=== PATIENT | female | born 1970 | race Caucasian/White ===

== ENCOUNTER 2023-03-17 10:26 | Outpatient (CLI) | payer BC, SELFPAY ==
--- NOTE | 2023-03-17 10:35 | MR_ITS ---
WS: [id number] MRI LUMBAR SPINE NONCONTRAST TECHNIQUE: Sagittal T1, T2 and STIR imaging. Axial T1 and T2 imaging. CLINICAL INFORMATION: CERVICAL SPONDYLOSIS WITH RADICULOPATHY COMPARISON: None. FINDINGS: Mild lumbar curve. No acute compression. Postoperative changes ACDF L4-S1. Interbody fusion graft L4- L5 and L5-S1. L1-L2: Normal. L2-L3: Mild annular bulging. Mild facet arthropathy. Spinal canal and foramen are patent. L3-L4: Mild annular bulging. Slight effacement of the ventral thecal sac. Mild facet arthropathy. Spi nal canal and foramen are patent. L4-L5: Postoperative changes ACDF. Spinal canal and foramen are patent. Mild facet arthropathy. L5-S1: Postoperative changes ACDF. Spinal canal and foramen are patent. Mild facet arthropathy. Visualized pelvic bony structures: Normal. Paravertebral soft tissues: Normal. IMPRESSION: 1. Mild lumbar curve. No acute compression. 2. Prior postoperative changes ACDF L4-S1 with interbody fusion grafts. 3. Disc bulging worse at L3-4 with slight effacement of the ventral thecal sac and mild narrowing of the LEFT greater than RIGHT subarticular recess. 4. Mild facet arthropathy L2-L3 and L3-L4. 5. No other suspicious findings.
--- NOTE | 2023-03-17 10:35 | MR_ITS ---
WS: [id number] MRI CERVICAL SPINE NONCONTRAST TECHNIQUE: Sagittal T1, T2 and STIR imaging. Axial T2, gradient, and fiesta imaging. CLINICAL INFORMATION: DDD,LUMBAR COMPARISON: MRI 2017 FINDINGS: Straightening with slight reversal normal cervical lordosis progressed compared to previous. C2-C3: Slight anterolisthesis C2 on C3. Mild facet arthropathy. Spinal canal and foramen are patent. C3-C4: Mild disc bulging with a tiny central protrusion. Slight progression compared to previous. Mil d facet arthropathy. Mild RIGHT and no significant LEFT foraminal narrowing. C4-C5: Minimal disc bulge with osteophytic ridging. Mild LEFT and no significant RIGHT foraminal narr owing. Mild facet arthropathy. C5-C6: Disc osteophyte complex with endplate ridging. Slight retrolisthesis C5 on C6. Moderate LEFT g reater than RIGHT bony foraminal narrowing. Mild facet arthropathy. C6-C7: Disc osteophyte complex with endplate ridging. Severe LEFT and mild RIGHT bony foraminal narro wing. Mild facet arthropathy with uncovertebral joint hypertrophy. C7-T1: Mild LEFT and no significant RIGHT foraminal narrowing. Spinal canal is patent. Visualized brain stem structures: Normal. Prevertebral soft tissues: Normal. IMPRESSION: 1. Straightening with slight reversal normal cervical lordosis progressed compared to previous. 2. Cord signal is normal. No significant central canal stenosis. 3. Moderate bilateral C5-C6 bony foraminal narrowing similar to previous. 4. Tiny shallow central protrusion C3-C4 slightly progressed compared to previous 5. Severe LEFT C6-7 bony foraminal narrowing progressed compared to previous. Disc desiccation and d isc bulging at this level has progressed.
== END 2023-03-17 10:27 | disposition home or self-care (01) ==
PROVIDERS: PCP Nurse Practitioner Family; Visit Provider Nurse Practitioner Family
DX: M51.36 Other intervertebral disc degeneration, lumbar region (principal); M47.22 Other spondylosis with radiculopathy, cervical region; M48.02 Spinal stenosis, cervical region; M50.323 Other cervical disc degeneration at C6-C7 level; Z98.1 Arthrodesis status; M47.816 Spondylosis without myelopathy or radiculopathy, lumbar region
CPT/HCPCS: 72141; 72148

== ENCOUNTER 2025-02-25 10:44 | Emergency (ER) | payer MEDICARE, MEDICAID, SELFPAY ==
--- OUTSIDE RECORDS SUMMARY | 2025-02-15 04:30 | XMS_ITS ---
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 Name Role Phone Patel Ingrid BENZ Primary Care Provider Unavail able Alvaro Hull Unavailable [phone] Nicole Hollins Unavailable [phone] REASON FOR VISIT S/P 02/03/2025 Fusion Cerv Ant Medications Medication SIG (Take, Route, Frequency, Duration) Notes Start Date End Date Status HYDROcodone-Acetamino phen 10-325 MG Tablet 1 tablet as needed Orally every 6 hrs; Duration: 30 days As needed Do not exceed 4 per day Fill on 01-17-25 12/15/2024 02/16/2025 Active Vital Signs Temperature 97.2 degrees Fahrenheit 02/16/20 25 Blood pressure systolic 132 mm Hg 02/16/20 25 Blood pressure diastolic 83 mm Hg 025 Heart Rate 76 /min 02/15/2025 Respiratory Rate 18 /min 02/15/2025 Height 70.00 in 02/15/2025 Weight 118 lbs 02/15/2025 BMI 16.93 kg/m2 02/15/2025 Oximetry 97 % 02/15/2025 Height-cm 177.8 cm 02/15/2025 Weight-kg 53.52 kg 02/15/2025 Encounters Encounter Location Date Provider Diagnosis [facility] [address] [address] 02/15/2025 Nicole Hollins Other spondylosis with radiculopathy, cervical region M47.22 Assessments Encounter Date Diagnosis (ICD Code) Assessment Notes Treatment Notes Treatment Clinical Notes Section Notes 02/15/2025 Other spondylosis with radiculopathy, cervical region (ICD-10 - M47.22) Plan Of Treatment Pending Test Test Name Order Date Cervical Spine AP/Lat 2-3 Views-[id number] Next Appt Details Provider Name:Nicole Hollis son, 03/15/2025 10:00:00 AM, [address] [place], [address], Provider Name:Alvaro Hull, 04/13/2025 10:40:00 AM, [address] [place], [address], Progress Notes * Shira WELLINGTON DDOB: 0 (54 yo F)Acc No.[id number]:02/15/2025 Patient: Franklin Shira joya Provider: Roxana Hollins APRN :1970 A ge:54 Y S ex:Female Date:02/15/2025 Address:[address] [place], [place] [id number] Pcp:TUYET Wilkinson Check Out:10:15 AM 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 E ar, Nose, Mouth, Throat D enies, ear pain, sore throat, sinus congestion, nasal drainage. C ardiovascular D enies any recent chest pain, palpitations or syncope. R espiratory D enies any shortness of breath, cough, or hemoptysis. G astrointestinal D enies heartburn, constipation, diarrhea, nausea, blood in stools, or abdominal pain. G enitourinary D enies dysuria, urinary frequency, or hematuria. M usculoskeletal D enies any joint pain or swelling, no recent trauma. I ntegumentary Denies any rashes, bruising, or skin changes. N eurologic D enies numbness, tingling, unilateral weakness, or vision changes.. * Medical History: No Medical History Documented Medical History Verified * Surgical History: Spinal Fusion Tonsillectomy Surgical History verified. * Hospitalization/Major Diagno stic Procedure: No Hospitalization Documented. Hospitalization Verified. * Family History: M igrated Family History: : Diabetes,Heart disease. F amily History Verified.. * Social History: Social History Verified. No Social History documented. * Medications: T akingHYDROcodone-Acetaminophen 10-325 MG Tablet 1 tablet as needed Orally every 6 hrs As needed Do not exceed 4 per day, stop date 02/16/2025, Notes to Pharmacist: Fill on [id number] List reviewed and reconciled with the patientTaking HYDROcodone-Acetaminophen 10-325 MG Tablet 1 tablet as needed Orally every 6 hrs As needed Do not exceed 4 per day, stop date 02/16/2025, Notes to Pharmacist: Fill on 53-66-29Rzpcpmuldy List reviewed and reconciled with the patient * Allergies: y esAllergies Verified. Objective: * Vitals: H t: 70.00 in, Wt:118lbs, Wt-k.52 kg, BMI:16.93Index, Temp:97.2F, BP:132/83mm Hg, HR:76/min, RR:18/min, Oxygen sat %:97%, O2 Source: RA, Ht-cm: 177.8 cm. Assessment: * Assessment: 1. O ther spondylosis with radiculopathy, cervical region - M47.22 (Primary) Plan: * Treatment: * Procedure Codes: 3 079F DIAST BP 80-89 MM [id number] SYST BP GE 130 - 139MM HG Billing Information: * Procedure Codes: 3079F DIAST BP 80-89 MM HG. 3075F SYST BP GE 130 - 139MM HG. * Electronic signature of Jose Manzanares APRN on 02/25/2025 at 11:03 AM CDT Sign off status: Pending * Provider: Roxana Hollins APRN Date: Generated for Genet galindo/Rodolfo/Pretty on: 11:03 AM CDT
--- OUTSIDE RECORDS SUMMARY | 2025-02-16 04:40 | XMS_ITS ---
Author Organization [facility] Address [address] [place] [address] Care Team Providers Care Verifier Name Role Phone Patel CIARAN-Ingrid Hall Primary Care Provider Unavail able Della Alvaro Unavailable [phone] Results Component Value Reference Range Flag Notes Urine Confirmation Panel (in strument) - [id number] Reviewed date:02/24/2025 10:20:38 AM Interpretation: Performing Lab: Notes/Report: 6-Acetylmorphine 0 <6 ng/mL N This kathy t was developed and its performance characteristics determined by [facility]. It has not been cleared or approved by the U.S. Food and Drug Administration. 7-Aminoclonazepam 0 <60 ng/mL N This te st was developed and its performance characteristics determined by [facility]. It has not been cleared or approved by the U.S. Food and Drug Administration. Alprazolam 0 <60 ng/mL N This test was developed and its performance characteristics determined by [facility]. It has not been cleared or approved by the U.S. Food and Drug Administration. Amphetamine 0 <75 ng/mL N This test was developed and its performance characteristics determined by [facility]. It has not been cleared or approved by the U.S. Food and Drug Administration. aOH-Alprazolam 0 <60 ng/mL N This test was developed and its performance characteristics determined by [facility]. It has not been cleared or approved by the U.S. Food and Drug Administration. Buprenorphine 0.0 <7.5 ng/mL N This test w as developed and its performance characteristics determined by [facility]. It has not been cleared or approved by the U.S. Food and Drug Administration. Norbuprenorphine 0.0 <37.5 ng/mL N This te st was developed and its performance characteristics determined by [facility]. It has not been cleared or approved by the U.S. Food and Drug Administration. Carisoprodol 0 <75 ng/mL N This test wa s developed and its performance characteristics determined by [facility]. It has not been cleared or approved by the U.S. Food and Drug Administration. Codeine 0 <75 ng/mL N This test was developed and its performance characteristics determined by [facility]. It has not been cleared or approved by the U.S. Food and Drug Administration. EDDP 0 <75 ng/mL N This test was developed and its performance characteristics determined by [facility]. It has not been cleared or approved by the U.S. Food and Drug Administration. Fentanyl 0 <6 ng/mL N This test was developed and its performance characteristics determined by [facility]. It has not been cleared or approved by the U.S. Food and Drug Administration. Hydrocodone 877 <75 ng/mL H This test was developed and its performance characteristics determined by [facility]. It has not been cleared or approved by the U.S. Food and Drug Administration. Hydromorphone 442 <75 ng/mL H This test w as developed and its performance characteristics determined by [facility]. It has not been cleared or approved by the U.S. Food and Drug Administration. Lorazepam 0 <60 ng/mL N This test was developed and its performance characteristics determined by [facility]. It has not been cleared or approved by the U.S. Food and Drug Administration. MDMA 0 <75 ng/mL N This test was developed and its performance characteristics determined by [facility]. It has not been cleared or approved by the U.S. Food and Drug Administration. Meperidine 0.0 <37.5 ng/mL N This test was developed and its performance characteristics determined by [facility]. It has not been cleared or approved by the U.S. Food and Drug Administration. Meprobamate 0 <75 ng/mL N This test was developed and its performance characteristics determined by [facility]. It has not been cleared or approved by the U.S. Food and Drug Administration. Methamphetamine 19 <75 ng/mL N This test was developed and its performance characteristics determined by [facility]. It has not been cleared or approved by the U.S. Food and Drug Administration. Methadone 0 <75 ng/mL N This test was developed and its performance characteristics determined by [facility]. It has not been cleared or approved by the U.S. Food and Drug Administration. Morphine 0 <75 ng/mL N This test was developed and its performance characteristics determined by [facility]. It has not been cleared or approved by the U.S. Food and Drug Administration. Nordiazepam 0 <60 ng/mL N This test was developed and its performance characteristics determined by [facility]. It has not been cleared or approved by the U.S. Food and Drug Administration. Norfentanyl 0 <6 ng/mL N This test was developed and its performance characteristics determined by [facility]. It has not been cleared or approved by the U.S. Food and Drug Administration. Normeperidine 0.0 <37.5 ng/mL N This test was developed and its performance characteristics determined by [facility]. It has not been cleared or approved by the U.S. Food and Drug Administration. O-desmethyltramadol 7 <75 ng/mL N This test was developed and its performance characteristics determined by [facility]. It has not been cleared or approved by the U.S. Food and Drug Administration. Oxazepam 0 <60 ng/mL N This test was developed and its performance characteristics determined by [facility]. It has not been cleared or approved by the U.S. Food and Drug Administration. Oxycodone 0.0 <37.5 ng/mL N This test was developed and its performance characteristics determined by [facility]. It has not been cleared or approved by the U.S. Food and Drug Administration. Oxymorphone 0 <75 ng/mL N This test was developed and its performance characteristics determined by [facility]. It has not been cleared or approved by the U.S. Food and Drug Administration. Phencyclidine 0.0 <7.5 ng/mL N This test w as developed and its performance characteristics determined by [facility]. It has not been cleared or approved by the U.S. Food and Drug Administration. Tapentadol 0.0 <37.5 ng/mL N This test was developed and its performance characteristics determined by [facility]. It has not been cleared or approved by the U.S. Food and Drug Administration. Temazepam 0 <60 ng/mL N This test was developed and its performance characteristics determined by [facility]. It has not been cleared or approved by the U.S. Food and Drug Administration. Tramadol 33 <75 ng/mL N This test was developed and its performance characteristics determined by [facility]. It has not been cleared or approved by the U.S. Food and Drug Administration. Norhydrocodone 4753 <75 ng/mL H This test was developed and its performance characteristics determined by [facility]. It has not been cleared or approved by the U.S. Food and Drug Administration. Noroxycodone 0 <38 ng/mL N This test wa s developed and its performance characteristics determined by [facility]. It has not been cleared or approved by the U.S. Food and Drug Administration. Pregabalin 0 <225 ng/mL N This test was developed and its performance characteristics determined by [facility]. It has not been cleared or approved by the U.S. Food and Drug Administration. Gabapentin 0 <225 ng/mL N This test was developed and its performance characteristics determined by [facility]. It has not been cleared or approved by the U.S. Food and Drug Administration. Benzoylecgonine 0.0 <37.5 ng/mL N This kathy t was developed and its performance characteristics determined by [facility]. It has not been cleared or approved by the U.S. Food and Drug Administration. 4-Hydroxy Xylazine 0 <25 ng/mL N This t est was developed and its performance characteristics determined by [facility]. It has not been cleared or approved by the U.S. Food and Drug Administration. Urine Drug Screen (cup read) - [id number] Reviewed date:02/16/2025 11:54:36 AM Interpretation: Performing Lab: Notes/Report: OPI + REASON FOR VISIT 2 month f/u Medications Medication SIG (Take, Route, Frequency, Duration) Notes Start Date End Date Status HYDROcodone-Acetamino phen 10-325 MG Tablet 1 tablet as needed Orally every 6 hrs; Duration: 30 days As needed Do not exceed 4 per day Fill on 03-18-25 02/16/2025 04/17/2025 Active HYDROcodone-Acetamino phen 10-325 MG Tablet 1 tablet as needed Orally every 6 hrs; Duration: 30 days As needed Do not exceed 4 per day Fill on 02-16-25 02/16/2025 03/18/2025 Active Social History Social History Additional Details Category Social Info Options Details Migrated Social History Migrated Social History Alcoholic beverages? - Yes, Applying for disability? - No, Currently on disability? - Yes, Drug or substance abuse? - No, exposure to toxins/poisonous substances at work - No, I am interested in quitting. - No, If yes, frequency of alcoholic beverages - Less than 1 drink per week., Marital Status - , Nonprescription drug use? - No, Participation in detoxification or rehabilitation - No, Smoked in the past? - No, Smoking - 1 PPD, Working currently? - No Problems Problem Type SNOMED Code ICD Code Onset Dates Problem Status W/U Status Risk Notes Problem Degeneration of intervertebral disc of lumbar region with discogenic back pain (M51.360) Active confirmed Vital Signs Height 70.00 in 02/16/2025 Weight 113 lbs 02/16/2025 BMI 16.21 kg/m2 02/16/2025 Height-cm 177.8 cm 02/16/2025 Weight-kg 51.26 kg 02/16/2025 Encounters Encounter Location Date Provider Diagnosis [facility] [place] [address] [place] [address] 02/16/2025 Alvaro Hull Chronic pain syndrom e G89.4 ; Other cervical disc degeneration, unspecified cervical region M50.30 ; Other spondylosis with radiculopathy, cervical region M47.22 ; Degeneration of intervertebral disc of lumbar region with discogenic back pain M51.360 ; Other spondylosis with radiculopathy, lumbosacral region M47.27 ; Sacroiliitis, not elsewhere classified M46.1 ; Postlaminectomy syndrome, not elsewhere classified M96.1 ; Unspecified abnormalities of gait and mobility R26.9 and assisted (current) use of opiate analgesic Z79.891 Assessments Encounter Date Diagnosis (ICD Code) Assessment Notes Treatment Notes Treatment Clinical Notes Section Notes 02/16/2025 Chronic pain syndrome (ICD-10 - G89.4) I had a nice visit with the patient today regarding her chronic pain issues. She underwent a cervical discectomy fusion with Dr. Lala a couple of weeks ago. She is healing from this. She did receive a short prescription for Percocet and a muscle relaxant post-operatively , but she has since transitioned back to hydrocodone. Otherwise, she seems fairly stable. We will continue her current medication regimen unchanged. We will follow up in a couple of months and proceed accordingly. 02/16/2025 Other cervical disc degeneration, unspecified cervical region (ICD-10 - M50.30) 02/16/2025 Other spondylosis with radiculopathy, cervical region (ICD-10 - M47.22) 02/16/2025 Degeneration of intervertebral disc of lumbar region with discogenic back pain (ICD-10 - M51.360) 02/16/2025 Other spondylosis with radiculopathy, lumbosacral region (ICD-10 - M47.27) 02/16/2025 Sacroiliitis, not elsewhere classified (ICD-10 - M46.1) 02/16/2025 Postlaminectomy syndrome, not elsewhere classified (ICD-10 - M96.1) 02/16/2025 Unspecified abnormalities of gait and mobility (ICD-10 - R26.9) 02/16/2025 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 Alvaro Hull. I, Dr. Alvaro Hull, personally performed the services described in this documentation, as scribed by Moriah Rodriguez, and it is both accurate and complete. Plan Of Treatment Medication Medication Name Sig Start Date Stop Date Notes HYDROcodone-Acetaminophen 10-325 MG Tablet 1 tablet as needed Orally every 6 hrs; Duration: 30 days 02/16/2025 04/17/2025 Fill on 03-18-25 HYDROcodone-Acetaminophen 10-325 MG Tablet 1 tablet as needed Orally every 6 hrs; Duration: 30 days 02/16/2025 03/18/2025 Fill on 02-16-25 Treatment Notes Assessment Notes Chronic pain syndrome I had a nice visit with the patient today regarding her chronic pain issues. She underwent a cervical discectomy fusion with Dr. Lala a couple of weeks ago. She is healing from this. She did receive a short prescription for Percocet and a muscle relaxant post-operatively, but she has since transitioned back to hydrocodone. Otherwise, she seems fairly stable. We will continue her current medication regimen unchanged. We will follow up in a couple of months and proceed accordingly. Other I, Moriah Rodriguez, am scribing for Dr. Alvaro Hull. I, Dr. Alvaro Hull, personally performed the services described in this documentation, as scribed by Moriah Rodriguez, and it is both accurate and complete. Next Appt Details Follow Up: 2 Months, Reason: Provider Name:Nicole Hollis son, 03/15/2025 10:00:00 AM, [address] [place], [address], Provider Name:Alvaro Hull, 04/13/2025 10:40:00 AM, [address] [place], [address], History and Physical Notes * HPI (History of Present Illness) Category Sub-Category Detail Notes Category Not es Pain Details Pain Location Neck, Left shoulder, Right shoulder Quality Sharp, Stabbing, Ach ing, Dull Severity of pain at its worst 10/10 Severity of pain at its best 3/10 Severity of average pain 6/10 Severity of pain right now 5/10 Severity of pain on medication 3/10 When did you last take your pain medicin e 02/16/25 at 0800 Medication Details Do you have a lock b ox or safe place for medication away from minors and/or others? Yes Do you have any leftover pain medication building up at your house? No Do you understand that pain medication c an be addicting and can cause overdose? Yes Do you feel you can REDUCE the amount of medication you take today? No Opioid Assessment Tools Pill Count 16 Last Urine Drug Screen 10/15/2024 Cup Today's Rapid Urine Drug Screen will be sent for confirmation [place] Prescription Monitoring Program [place] PDMP, found to be consistent with treatment history, reviewed todayHydro 10 #120 filled 01/17 Treatment History Test undergone in the past MRI C Spine Past medication you have taken Hydrocodo ne 10 #120 Treatments you have had 09/23/2024 C6-7 CESI1 JAMES C7-T1Has completed PT Examination Category Sub-Category Detail Notes Category Not es General Examination Constitutional: Patient appears to be appropriate looking for stated age, lean. Patient is awake, alert and oriented to person, place and time with recent/ remote memory intact. in no acute distress noted. HEENT: Atraumatic, Normocephalic,Pupils grossly normal on inspection. Respiratory: Visual Inspection: breathing equal bilaterally, trachea midline. Cardiovascular: Cardiac rhythm is regular. Cervical Spine: [place] collar in place Lumbar Spine: Inspection of the lumbar spine reveals loss of normal lordosis with no obvious scoliosis or asymmetry noted. Anterior surgical scar. Palpation of the lumbar facets produced back pain. Range of Motion: Reduced ROM in all directions. Hyperextension at lumbar spine reproduced lower back pain. Bilateral facet loading maneuvers (lateral flexion/extension/bending) reproduced lower back pain. Bilateral lateral rotation also causes some pain. Stooping forward slightly gives some relief. Anterior lumbar flexion causes pain. Pain during lumbar extension was observed. Left lateral flexion causes pain. Right lateral flexion causes pain. Lumbar spine: b/l paraspinal muscle tightness. Joints- Hips/ SI Joint: SI Joint Palpation : + Left SI tenderness/LEXII/SI compression/SI thrust Neurology - Mental Status: Mood and affect appear to be normal. Neurology - Coordination: Patient has antalgic gait. Neurology - Straight Leg Raising: Right: 60 degrees and negative. Left: 60 degrees and negative. Neurology - Motor Strength: B/L UE strength 4+/5 subjectively limited by pain throughout Left LE strength - Flexors: 5/5. Right LE strength - Flexors: 5/5. Left LE strength - Extensors: 5/5. Right LE strength - Extensors: 5/5. Left LE Tone: Normal. Right LE Tone: Normal. Neurology - Deep Tendon Reflexes: Left biceps (DTR): 2. Right biceps (DTR): 2. Left triceps (DTR): 2. Right triceps (DTR): 2. Left brachioradialis (DTR): 2. Right brachioradialis (DTR): 2. Left patellar (DTR): 2. Right patellar (DTR): 2. Left achilles (DTR): 2. Right achilles (DTR): 2 Sensation grossly intact, intermittent dysesthesias in left C6-7 Progress Notes * Shira [place] DDOB:[birth year] (54 yo F)Acc No.[id number]:02/16/2025 Progress Notes Patient: Shira Toro Provider: Franklin Hull D.O. 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 Quality S harp, Stabbing, Aching, Dull. Severity of pain at its worst 1 0/10. Severity of pain at its best 3 /10. Severity of pain on medication 3 /10. Severity of average pain 6 /10. Severity of pain right now 5 /10. When did you last take your pain medicine 1 at 0800.? M edication Details: Do you have a lock box or safe place for medication away from minors and/or others? Y es. Do you have any leftover pain medication building up at your house? N o. Do you understand that pain medication can be addicting and can cause overdose? Y es. Do you feel you can REDUCE the amount of medication you take today? N o. O pioid Assessment Tools: Pill Count 1 6. Last Urine Drug Screen Cup. Today's Rapid Urine Drug Screen w ill be sent for confirmation. [place] Prescription Monitoring Program [place] PD[place], found to be consistent with treatment history, reviewed today H ydro 10 #120 filled 01/17. T reatment History: Test undergone in the past 0 08/04/2024 MRI C Spine. Past medication you have taken H ydrocodone 10 #120 . ? Treatments you have had 0 09/23/2024 C6-7 JAMES 1 JAMES C7-T1 H as completed PT. Shoaib estrella Note: I've been taking hydrocodone every four hours. I am really tense. The base of my skull doesn't hurt anymore. Patient returns to the clinic for a 2-month follow-up. She has been following up with Dr. Lala, who completed surgical interventions on her. He has been in charge of her post-operative medication of Percocet and a muscle relaxer. She reports that she continues to have some post-operative pain; however, the surgery has resolved some of her cervical pain. 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 * Medical History: High Blood Pressure Bronchitis Arthritis Medical History Verified * Surgical History: Spinal Fusion Tonsillectomy Surgical History verified. * Family History: M igrated Family History: : Diabetes, H eart disease. F amily History Verified.. * Social History: M igrated Social History: M igrated Social History: Alcoholic beverages? - Yes, A pplying for disability? - No, C urrently on disability? - Yes, D rug or substance abuse? - No, e xposure to toxins/poisonous substances at work - No, I am interested in quitting. - No, If yes, frequency of alcoholic beverages - Less than 1 drink per week., M arital Status - , N onprescription drug use? - No, P articipation in detoxification or rehabilitation - No, Smoked in the past? - No, S moking - 1 PPD, W orking currently? - No. S ocial History Verified. * Medications: T akingHYDROcodone-Acetaminophen 10-325 MG Tablet 1 tablet as needed Orally every 6 hrs As needed Do not exceed 4 per day, stop date 02/16/2025, Notes to Pharmacist: Fill on [id number] List reviewed and reconciled with the patientTaking HYDROcodone-Acetaminophen 10-325 MG Tablet 1 tablet as needed Orally every 6 hrs As needed Do not exceed 4 per day, stop date 02/16/2025, Notes to Pharmacist: Fill on [id number] List reviewed and reconciled with the patient Objective: * Vitals: H t: 70.00 in, Wt:113lbs, Wt-k.26 kg, BMI:16.21Index, Ht-cm: 177.8 cm. * Examination: G eneral Examination: C onstitutional: Patient appears to be appropriate looking for stated age, lean. Patient is awake, alert and oriented to person, place and time with recent/ remote memory intact. in no acute distress noted. HEENT: Atraumatic, Normocephalic,Pupils grossly normal on inspection. Respiratory: Visual Inspection: breathing equal bilaterally, trachea midline. Cardiovascular: Cardiac rhythm is regular. Cervical Spine: [place] collar in place Lumbar Spine: Inspection of the lumbar spine reveals loss of normal lordosis with no obvious scoliosis or asymmetry noted. Anterior surgical scar. Palpation of the lumbar facets produced back pain. Range of Motion: Reduced ROM in all directions. Hyperextension at lumbar spine reproduced lower back pain. Bilateral facet loading maneuvers (lateral flexion/extension/bending) reproduced lower back pain. Bilateral lateral rotation also causes some pain. Stooping forward slightly gives some relief. Anterior lumbar flexion causes pain. Pain during lumbar extension was observed. Left lateral flexion causes pain. Right lateral flexion causes pain. Lumbar spine: b/l paraspinal muscle tightness. Joints- Hips/ SI Joint: SI Joint Palpation : + Left SI tenderness/LEXII/SI compression/SI thrust Neurology - Mental Status: Mood and affect appear to be normal. Neurology - Coordination: Patient has antalgic gait. Neurology - Straight Leg Raising: Right: 60 degrees and negative. Left: 60 degrees and negative. Neurology - Motor Strength: B/L UE strength 4+/5 subjectively limited by pain throughout Left LE strength - Flexors: 5/5. Right LE strength - Flexors: 5/5. Left LE strength - Extensors: 5/5. Right LE strength - Extensors: 5/5. Left LE Tone: Normal. Right LE Tone: Normal. Neurology - Deep Tendon Reflexes: Left biceps (DTR): 2. Right biceps (DTR): 2. Left triceps (DTR): 2. Right triceps (DTR): 2. Left brachioradialis (DTR): 2. Right brachioradialis (DTR): 2. Left patellar (DTR): 2. Right patellar (DTR): 2. Left achilles (DTR): 2. Right achilles (DTR): 2 Sensation grossly intact, intermittent dysesthesias in left C6-7. Assessment: * Assessment: 1. C hronic pain syndrome - G89.4 (Primary) 2 . O ther cervical disc degeneration, unspecified cervical region - M50.30 3 . O ther spondylosis with radiculopathy, cervical region - M47.22 4 . D egeneration of intervertebral disc of lumbar region with discogenic back pain - M51.360 5 . O ther spondylosis with radiculopathy, lumbosacral region - M47.27 6 . S acroiliitis, not elsewhere classified - M46.1 7 . P ostlaminectomy syndrome, not elsewhere classified - M96.1 & #160; 8 . U nspecified abnormalities of gait and mobility - R26.9 9 . L sonam term (current) use of opiate analgesic - Z79.891 Plan: * Treatment: 2. O ther spondylosis with radiculopathy, cervical region Refill HYDROcodone-Acetaminophen Tablet, 10-325 MG, 1 tablet as needed, Orally, every 6 hrs As needed Do not exceed 4 per day, 30 days, 120 Tablet, Start Date: 02/16/2025, Stop Date: 03/18/2025, Refills 0, Notes to Pharmacist: Fill on 02-16-25; R efill HYDROcodone-Acetaminophen Tablet, 10-325 MG, 1 tablet as needed, Orally, every 6 hrs As needed Do not exceed 4 per day, 30 days, 120 Tablet, Start Date: 02/16/2025, Stop Date: 04/17/2025, Refills 0, Notes to Pharmacist: Fill on 03-18-25. 3. L sonam term (current) use of opiate analgesic L AB: Urine Drug Screen (cup read) - [id number] (Collection Date & Time - 02/16/2025) Value Reference Range O PI + ?LAB: Urine Confirmation Panel (instrument) - [id number] (Collection Date & Time - 02/16/2025)4.?Others? Notes: I, Moriah Rodriguez, am scribing for Dr. Alvaro Hull. I, Dr. Alvaro Hull, personally performed the services described in this documentation, as scribed by Moriah Rodriguez, and it is both accurate and complete.?? * Procedure Codes: 8 0305 DRUG TEST PRSMV DIR OPT OBS IH * Follow Up: 2 Months Billing Information: * Visit Code: 74939 Office Visit, Est Pt., Level 4. * Procedure Codes: 32981 DRUG TEST PRSMV DIR OPT OBS IH. Care Plan Details* * Electronic signature of Alvaro Hull DO on 02/25/2025 at 11:03 AM CDT Sign off status: Pending * Provider: Franklin Hull D.O. Date: Generated for Genet galindo/Rodolfo/Pretty on: 11:03 AM CDT
--- NOTE | 2025-02-25 10:48 | XR_ITS ---
WS: [id number] XR chest 1V portable [id number] REASON FOR EXAM: chest pain FINDINGS: No previous examination for comparison. The heart and the mediastinum are within normal limits. Calcified granulomas disease bilaterally. No acute pulmonary parenchymal or pleural abnormality. The bony thorax is intact without significant focal abnormality. XR/XR chest 1V portable [id number] IMPRESSION: No acute chest abnormality.
[2025-02-25 10:50] VITALS: BP 131/86; PULSE 84; RESP 18; TEMP 36.6; O2SAT 97
--- NOTE | 2025-02-25 10:54 | ECG_ITS ---
[email or web address] Date: 2025-02-25 Pat Name: Shira Wellington Department: Room: Gender: Female Electronic Tester: : 1970 Requested By: Malathi Villatoro Order Number: [id number] Cassie MD: Rich Murcia M.D. Measurements Intervals [place] Rate: 84 P: 80 TN: 150 QRS: 101 QRSD: 90 T: 102 QT: 372 QTc: 441 Interpretive Statements SINUS RHYTHM WITH MARKED SINUS ARRHYTHMIA POSSIBLE RIGHT ATRIAL ENLARGEMENT [0.25mV P-WAVE] POSSIBLE LEFT ATRIAL ENLARGEMENT [-0.1mV P-WAVE IN V1/V2] POSSIBLE RIGHT VENTRICULAR HYPERTROPHY [SOME/ALL OF: PROMINENT R IN V1, LATE TRANSITION, RAD, ADONAY, SSS] MODERATE ST DEPRESSION [0.05+ mV ST DEPRESSION] No previous ECG available for comparison Electronically Signed On 02-26-2025 11:59:01 CDT by Rich Murcia M.D. [email or web address]
--- OUTSIDE RECORDS SUMMARY | 2025-02-25 11:03 | XMS_ITS | Encounter Summary ---
Author Organization [facility] Address [address] [place] [address] Care Team Providers Care Workers Compensation Claims Supervisor Name Role Phone Jimmy Apodaca MD Primary Care Provider [phone] Encounter Details Date Type Department Care Team (Late st Contact Info) Description 07/06/2012 Orders Only [facility] Radiology [address] [place] [address] System, Provider Not In, [address] [place] [address] Social History Tobacco Use Types Packs/Day Years Used Date Smoking Tobacco: Never Assessed Comments Unknown Sex and Gender Information Value Date Recorded Sex Assigned at Not on file Legal Sex Female 8:10 PM CDT Gender Identity Not on file Sexual Orientation Not on file documented as of this encounter Plan of Treatment Not on file documented as of this encounter Procedures Procedure Name Priority Date/Time Associated Diagnosis Comments OUTSIDE IMAGES 07/06/2012 11:22 AM 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 documented in this encounter Results * Outside Images (07/06/2012 11:22 AM 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 HYDRAULIC) Anatomical Region Laterality Modality N/A Radiographic Caroline ging 07/06/2012 11:2 2 AM 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 HYDRAULIC Narrative 07/06/2012 11:22 AM 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 HYDRAULIC Historic images from [facility] exist and can be viewed by using the hyperlink to access [employer] pacs: MRI CERVICAL SPINE NO CONTRAST *OPEN Procedure Note System, Provider Not In - 06/02/2020 Historic images from [facility] exist and can be viewed byusing the hyperlink to access [employer] pacs: MRI CERVICAL SPINE NOCONTRAST *OPEN us Provider Not In System MD [facility] Final Result documented in this encounter Visit Diagnoses Not on filedocumented in this encounter Care Teams Workers Compensation Claims Supervisor Relationship Specialty Start Date End Date Jimmy Apodaca MD [address] [place] [address] PCP - General Family Medicine 12/18/17 documented as of this encounter
--- OUTSIDE RECORDS SUMMARY | 2025-02-25 11:03 | XMS_ITS | Encounter Summary ---
Author Organization [facility] Address [address] [place] [address] Care Team Providers Care Field Support Representative Name Role Phone Jimmy Apodaca MD Primary Care Provider [phone] Encounter Details Date Type Department Care Team (Late st Contact Info) Description 11/01/2015 Orders Only [facility] [address] [facility] [place] [address] System, Provider Not In, [address] [facility] [place] [address] Social History Tobacco Use Types Packs/Day Years [...] Priority Date/Time Associated Diagnosis Comments OUTSIDE IMAGES 11/01/2015 1:57 PM CDT documented in this encounter Results * Outside Images (11/01/2015 1:57 PM CDT) Anatomical Region Laterality Modality N/A Radiographic Caroline ging 11/01/2015 1:57 PM CDT Narrative 11/01/2015 1:57 PM CDT Historic images from [facility] exist and can be viewed by using the hyperlink to access [employer] pacs: MRI CERVICAL SPINE NO CONTRAST Procedure Note System, Provider Not In, - 06/08/2020 Historic images from [facility] exist and can be viewed byusing the hyperlink to access [employer] pacs: MRI CERVICAL SPINE NOCONTRAST us Provider Not In System MD [facility] Final Result documented in this encounter Visit Diagnoses Not on filedocumented in this encounter Care Teams Field Support Representative Relationship Specialty Start Date End Date Jimmy Apodaca MD [address] [place] [id number] PCP - General Family Medicine 12/18/17 documented as of this encounter
--- OUTSIDE RECORDS SUMMARY | 2025-02-25 11:04 | XMS_ITS | Clinical Summary ---
Author Organization [facility] Address [address] [place] [address] Care Team Providers Care Ripsaw Matcher Name Role Phone Jimmy Apodaca MD Primary Care Provider [phone] Social History Tobacco Use Types Packs/Day Years Used Date Smoking Tobacco: Never Assessed Comments Unknown Sex and Gender Information Value Date Recorded Sex Assigned at Not on file Legal Sex Female 8:10 PM CDT Gender Identity Not on file Sexual Orientation Not on file Plan of Treatment Health Maintenance Due Date Last Done Comments Medicare Annual Wellness 1970 Hepatitis B Vaccines (1 of 3 - 19+ 3-dose series) 1988 Td, Tdap Vaccines Adult 1988 Pap Smear 1990 Mammogram 2009 Colonoscopy 2014 Pneumococcal Vaccine: 50+ Ye ars (1 of 1 - PCV) 11/01/2019 Shingrix (ZOSTER RECOMBINANT ) (1 of 2) 11/01/2019 Influenza Vaccination (#1) 2024 HIB Vaccines Aged Out No longer eligi ble based on patient's age to complete this topic HPV Vaccines Aged Out No longer eligi ble based on patient's age to complete this topic Hepatitis A Vaccines Aged Out No long er eligible based on patient's age to complete this topic IPV Vaccines Aged Out No longer eligi ble based on patient's age to complete this topic Meningococcal Vaccines Aged Out No lo nger eligible based on patient's age to complete this topic RSV Mab Nirsevimab (Beyfortu s) <20 months Aged Out No longer eligible b ased on patient's age to complete this topic Rotavirus Vaccines Aged Out No longer eligible based on patient's age to complete this topic Insurance [facility] Care Teams Ripsaw Matcher Relationship Specialty Start Date End Date Jimmy Apodaca MD [address] [place] [address] [place] [address] PCP - General Family Medicine 12/18/17
--- OUTSIDE RECORDS SUMMARY | 2025-02-25 11:04 | XMS_ITS | Encounter Summary ---
Author Organization [facility] Address [address] [place] [address] Care Team Providers Care Production Cost Estimator Name Role Phone Jimmy Apodaca MD Primary Care Provider [phone] Encounter Details Date Type Department Care Team (Late st Contact Info) Description 06/12/2012 Orders Only [facility] Radiology [address] [place] [address] System, Provider Not In, [address] [place] [address] Social History Tobacco Use Types Packs/Day Years [...] Priority Date/Time Associated Diagnosis Comments OUTSIDE IMAGES 06/12/2012 2:31 PM ADJUNCT INSTRUCTOR CHEMISTRY documented in this encounter Results * Outside Images (06/12/2012 2:31 PM ADJUNCT INSTRUCTOR CHEMISTRY) Anatomical Region Laterality Modality N/A Radiographic Caroline ging 06/12/2012 2:31 PM ADJUNCT INSTRUCTOR CHEMISTRY Narrative 06/12/2012 2:31 PM ADJUNCT INSTRUCTOR CHEMISTRY Historic images from [facility] exist and can be viewed by using the hyperlink to access [employer] pacs: CERVICAL SPINE 2/3V Procedure Note System, Provider Not In - 06/02/2020 Historic images from [facility] exist and can be viewed byusing the hyperlink to access [place] pacs: CERVICAL SPINE 2/3V us Provider Not In System MD [facility] Final Result documented in this encounter Visit Diagnoses Not on filedocumented in this encounter Care Teams Production Cost Estimator Relationship Specialty Start Date End Date Jimmy Apodaca MD [address] [place] [id number] PCP - General Family Medicine 12/18/17 documented as of this encounter
--- OUTSIDE RECORDS SUMMARY | 2025-02-25 11:04 | XMS_ITS | Encounter Summary ---
Author Organization [facility] Address [address] [place] [address] Care Team Providers Care Wildlife Conservationist Name Role Phone Jimmy Apodaca MD Primary Care Provider [phone] Encounter Details Date Type Department Care Team (Late st Contact Info) Description 12/18/2017 Orders Only [facility] Radiology [address] [facility] [place] [address] System, Provider Not In, [address] [place] [address] Social History Tobacco Use Types Packs/Day Years [...] Priority Date/Time Associated Diagnosis Comments OUTSIDE IMAGES 12/18/2017 9:56 AM CDT documented in this encounter Results * Outside Images (12/18/2017 9:56 AM CDT) Anatomical Region Laterality Modality N/A Radiographic Caroline ging 12/18/2017 9:56 AM CDT Narrative 12/18/2017 9:56 AM CDT Historic images from [facility] exist and can be viewed by using the hyperlink to access [employer] pacs: SHOULDER L Procedure Note System, Provider Not InMD - 01/07/2019 Historic images from [facility] exist and can be viewed byusing the hyperlink to access [employer] pacs: SHOULDER L us Provider Not In System MD [facility] Final Result documented in this encounter Visit Diagnoses Not on filedocumented in this encounter Care Teams Wildlife Conservationist Relationship Specialty Start Date End Date Jimmy Apodaca MD [address] [place] [phone] PCP - General Family Medicine 12/18/17 documented as of this encounter
--- OUTSIDE RECORDS SUMMARY | 2025-02-25 11:04 | XMS_ITS | Encounter Summary ---
Author Organization [facility] Address [address] [place] [address] Care Team Providers Care Director Of Head Start Name Role Phone Jimmy Apodaca MD Primary Care Provider [phone] Encounter Details Date Type Department Care Team (Late st Contact Info) Description 11/14/2015 Orders Only [facility] Radiology [address] [place] [address] System, Provider Not In, [address] [place] [address] Social History Tobacco Use Types Packs/Day Years [...] Priority Date/Time Associated Diagnosis Comments OUTSIDE IMAGES 11/14/2015 8:38 AM CDT documented in this encounter Results * Outside Images (11/14/2015 8:38 AM CDT) Anatomical Region Laterality Modality N/A Radiographic Caroline ging 11/14/2015 8:38 AM CDT Narrative 11/14/2015 8:38 AM CDT Historic images from [facility] exist and can be viewed by using the hyperlink to access [employer] pacs: CT CHEST W/CONTRAST Procedure Note System, Provider Not In - 06/07/2020 Historic images from [facility] exist and can be viewed byusing the hyperlink to access ebridge pacs: CT CHEST W/CONTRAST us Provider Not In System MD [facility] Final Result documented in this encounter Visit Diagnoses Not on filedocumented in this encounter Care Teams Director Of Head Start Relationship Specialty Start Date End Date Jimmy Apodaca MD [address] [place] [id number] PCP - General Family Medicine 12/18/17 documented as of this encounter
--- OUTSIDE RECORDS SUMMARY | 2025-02-25 11:04 | XMS_ITS | Patient Health Record ---
Author Organization [facility] Address [address] [place] [address] Care Team Providers Care Monorail Operator Name Role Phone Patel Ingrid BENZ Primary Care Provider Unavail able Alvaro Hull Unavailable [phone] Jack Lala Unavailable [phone] Nicole Hollins Unavailable [phone] Migration, Provider Unavailable Unavailable Leia Smith Unavailable Delbert Miguelina Unavailable [phone] Maddy, [place] Unavailable [phone] Allergies No Known Allergies Results Component Value Reference Range Flag Notes Urine Drug Screen (cup read) - [id number] Reviewed date:02/16/2025 11:54:36 AM Interpretation: Performing Lab: Notes/Report: OPI + Urine Confirmation Panel (in strument) - [id number] Reviewed date:02/24/2025 10:20:38 AM Interpretation: Performing Lab: [...] Administration. Urine Drug Screen (cup read) - [id number] Reviewed date:10/15/2024 10:02:01 AM Interpretation:Negative Performing Lab: Notes/Report: Negative Chest PA/Lat-06329 (Not yet reviewed by provider) Interpretation: Performing Lab: Notes/Report: hjl=[id number]&org=iSite Cervical Spine AP/Lat 2-3 Vi [id number] (Not yet reviewed by provider) Interpretation: Performing Lab: Notes/Report: See Below For Report Cervical Spine AP/Lat 2-3 Views Read See Below For Report Tox Results Reviewed date:02/24/2025 10:59:15 AM Interpretation: Performing Lab: Notes/Report: zzzMRI Outside CD (Not yet r eviewed by provider) Interpretation: Performing Lab: Notes/Report: [id number]&org=iSite zzzFluoro >1h4 (Not yet revi ewed by provider) Interpretation: Performing Lab: Notes/Report: Fluoroscopy only. No dictation for this exam and accession number. FINAL REPORT Read Fluoroscopy only. No dictation for this exam and accession number. Cervical Spine AP/Lat 2-3 Vi [id number] (Not yet reviewed by provider) Interpretation: Performing Lab: Notes/Report: duh=[id number]&org=iSite Chest PA/Lat-38189 (Not yet reviewed by provider) Interpretation: Performing Lab: Notes/Report: See Below For Report Chest PA/Lat Diagnosis Description: Spondylosis without myelopathy or radiculopathy, cervical region Read See Below For Report BB ABORH-[id number] (Not ye t reviewed by provider) Interpretation: Performing Lab: Notes/Report: BB ABORh Interp O NEG Unknown Partial Thromboplastin Time 27567 (Not yet reviewed by provider) Interpretation: Performing Lab: Notes/Report: Diagnosis Description: Spondylosis without myelopathy or radiculopathy, cervical region Diagnosis Description: Cervicalgia Diagnosis Description: Radiculopathy, cervical region Diagnosis Description: Other biomechanical lesions of cervical region Diagnosis Description: Other cervical disc degeneration, unspecified cervical region Diagnosis Description: Hemorrhagic condition, unspecified Diagnosis Description: Encounter for other preprocedural examination PTT 28.2 22.6-31.8 SEC Therapeutic Range: 60-100. Critical Value Starting at > 100. CBC w\ Auto Diff 99119 (Not yet reviewed by provider) Interpretation: Performing Lab: Notes/Report: Diagnosis Description: Spondylosis without myelopathy or radiculopathy, cervical region Diagnosis Description: Cervicalgia Diagnosis Description: Radiculopathy, cervical region Diagnosis Description: Other biomechanical lesions of cervical region Diagnosis Description: Other cervical disc degeneration, unspecified cervical region Diagnosis Description: Hemorrhagic condition, unspecified Diagnosis Description: Encounter for other preprocedural examination WBC 4.7 4.5-11.0 X10'3 RBC 3.98 4.00-5.20 X10'6 LOW Hgb 12.3 12.0-16.0 G/DL Hct 38.0 36.0-46.0 % MCV 95.5 80.0-100.0 FL MCH 30.9 27.0-31.0 PG MCHC 32.4 31.0-37.0 G/DL Platelet 277 150-400 X10'3 RDW-SD 44.1 35.0-49.0 FL RDW-CV 12.7 12.2-15.6 % MPV 11.2 9.2-12.0 FL Neutro Auto% 56.0 40.0-70.0 % Lymph Auto% 33.5 22.0-44.0 % [place] Auto% 8.2 3.0-7.0 % HI Eos Auto% 1.3 2.0-4.0 % LOW Baso Auto% 0.8 0.0-1.0 % Imm Gran% .2 .0-.4 % Neutro Abs 2.65 .80-7.70 Absolute Neutrophil Count 2650 NA Lymph Abs 1.59 .10-4.10 [place] Abs .39 .20-1.00 Eos Abs .06 .00-.40 Baso Abs .04 .00-.20 Imm Gran Abs .01 .00-.10 NRBC# .00 .00-.20 X10'3 NRBC% .00 .00-.20 /100 intact WBC's Basic Metabolic Panel (BMP) 98121 (Not yet reviewed by provider) Interpretation: Performing Lab: Notes/Report: Diagnosis Description: Spondylosis without myelopathy or radiculopathy, cervical region Diagnosis Description: Cervicalgia Diagnosis Description: Radiculopathy, cervical region Diagnosis Description: Other biomechanical lesions of cervical region Diagnosis Description: Other cervical disc degeneration, unspecified cervical region Diagnosis Description: Hemorrhagic condition, unspecified Diagnosis Description: Encounter for other preprocedural examination Sodium 140 136-145 MMOL/L Potassium 4.1 3.5-5.1 MMOL/L Chloride 104 98-107 MMOL/L CO2 27.2 20.0-31.0 MMOL/L Glucose Serum 60 71-110 MG/DL LOW Testing p jason at [facility], [address] [place] [address] [place] [address]. CLIA ID#: [id number] BUN 11 7-21 MG/DL Creat .74 .51-1.17 MG/DL H-zuxyav-o-benzoquin one imine (NAPQI) is a metabolite of acetaminophen, NAPQI concentrations of apparoximately 10 mg/L correlation to toxic levels of acetaminophen demonstrates a greater than or equil to 10% change in results. NAPQI concentrations greater than this may lead to falsely depressed results for patient samples. Use of this assay is not recommended for patients undergoing treatment with phenindione, due to the potential for falsely depressed results. GFR 94.7 NA Calculation pe rformed from GFR calculator provided by the [employer]. Glomerular Filtration rate(GRF) is the best overall index of kidney function. Normal GFR varies according to age,sex, body size, and declines with age. The [employer] recommends using the CKD-EPI Creatinine Equation(202) to estimate GFR. Anion Gap 13 5-15 BUN/Creat Ratio 14.9 12.0-20.0 % Calcium 9.4 8.7-10.4 MG/DL Osmo Serum,Calculated 287 280-300 MOSM/KG Antibody Screen 69439 (Not y et reviewed by provider) Interpretation: Performing Lab: Notes/Report: Diagnosis Description: Spondylosis without myelopathy or radiculopathy, cervical region Diagnosis Description: Cervicalgia Diagnosis Description: Radiculopathy, cervical region Diagnosis Description: Other biomechanical lesions of cervical region Diagnosis Description: Other cervical disc degeneration, unspecified cervical region Diagnosis Description: Hemorrhagic condition, unspecified Diagnosis Description: Encounter for other preprocedural examination Blood Bank ID [id number] Unknown ABSC Interp Negative ABORh 70127, 11115 (Not yet reviewed by provider) Interpretation: Performing Lab: Notes/Report: Diagnosis Description: Spondylosis without myelopathy or radiculopathy, cervical region Diagnosis Description: Cervicalgia Diagnosis Description: Radiculopathy, cervical region Diagnosis Description: Other biomechanical lesions of cervical region Diagnosis Description: Other cervical disc degeneration, unspecified cervical region Diagnosis Description: Hemorrhagic condition, unspecified Diagnosis Description: Encounter for other preprocedural examination ABO/Rh Interp O NEG Unknown Prothrombin Time 25914 (Not yet reviewed by provider) Interpretation: Performing Lab: Notes/Report: Diagnosis Description: Spondylosis without myelopathy or radiculopathy, cervical region Diagnosis Description: Cervicalgia Diagnosis Description: Radiculopathy, cervical region Diagnosis Description: Other biomechanical lesions of cervical region Diagnosis Description: Other cervical disc degeneration, unspecified cervical region Diagnosis Description: Hemorrhagic condition, unspecified Diagnosis Description: Encounter for other preprocedural examination ProTime 10.3 9.1-11.9 SEC Normal Range : 9.1-11.9 INR .97 .90-1.20 Therapeutic Range: 2.0-3.0 Therapaeutic Range for heart valve replacement: 2.5-3.50 zzzUrine Drug Screen (confir mation by instrument) - 15028 Reviewed date:05/18/2024 01:41:35 PM Interpretation: Performing Lab: Notes/Report: MRI Cervical Spine w/o Cont- [id number] Reviewed date:08/06/2024 09:30:20 AM Interpretation: Performing Lab: Notes/Report: Urine Confirmation Panel (in strument) - [id number] Reviewed date:07/28/2024 03:27:38 PM Interpretation: Performing Lab: Notes/Report: 6-Acetylmorphine 0 <6 [...] the U.S. Food and Drug Administration. Hydrocodone 667 <75 ng/mL H This test was developed and its performance characteristics determined by [facility]. It has not been cleared or approved by the U.S. Food and Drug Administration. Hydromorphone 157 <75 ng/mL H This test w as [...] the U.S. Food and Drug Administration. Methamphetamine 0 <75 ng/mL N This test was [...] the U.S. Food and Drug Administration. O-desmethyltramadol 0 <75 ng/mL N This test was [...] the U.S. Food and Drug Administration. Tapentadol 6.1 <37.5 ng/mL N This test was developed and its performance characteristics determined by [facility]. It has not been cleared or approved by the U.S. Food and Drug Administration. Temazepam 2 <60 ng/mL N This test was developed and its performance characteristics determined by [facility]. It has not been cleared or approved by the U.S. Food and Drug Administration. Tramadol 12 <75 ng/mL N This test was developed and its performance characteristics determined by [facility]. It has not been cleared or approved by the U.S. Food and Drug Administration. Norhydrocodone 1080 <75 ng/mL H This test was developed [...] Administration. Urine Drug Screen (cup read) - 47208 Reviewed date:07/21/2024 04:16:34 PM Interpretation: Performing Lab: Notes/Report: OPI - Tox Results Reviewed date:07/28/2024 03:20:10 PM Interpretation: Performing Lab: Notes/Report: Reason For Referral Reason C-Spine Diagnosis 1 Chronic pain syndrom e (G89.4) Referral Organization [facility] Referring Provider First Name Miguelina Referring Provider Last Name Delbert Referring Provider Speciality Pain Medic ine Referred Provider Xavier Hatch Referral Priority Routine Reason eval and treat Diagnosis 1 Postlaminectomy synd jai, not elsewhere classified (M96.1) Referring Provider First Name Alvaro Referring Provider Last Name Della Referring Provider Speciality [facility] Referred Organization [facility] [place] Referred Provider Jack Lala Referred Address [address],[place],[address], Referral Priority Routine Reason eval and treat Diagnosis 1 Postlaminectomy synd jai, not elsewhere classified (M96.1) Referral Organization [facility] Referring Provider First Name Alvaro Referring Provider Last Name Della Referring Provider Speciality Inter[facility] onal Pain Medicine Referred Organization [facility] [place] Referred Provider Jack Lala Referred Address [address] [facility], Referred Provider Specialty Neurosurgery Referral Priority Routine Medications Medication SIG (Take, Route, Frequency, Duration) Notes Start Date End Date Status HYDROcodone-Acetamino phen 10-325 MG Tablet 1 tablet as needed Orally every 6 hrs; Duration: 30 days As needed Do not exceed 4 per day Fill on 03-18-25 02/16/2025 04/17/2025 Active tiZANidine HCl 4 MG Tablet 1 tablet Orally every 12 hours; Duration: 30 days As needed 02/21/2025 Active HYDROcodone-Acetamino phen 10-325 MG Tablet 1 [...] Problem Status W/U Status Risk Notes Problem Chronic pain syndrome (793968800) Chronic pain syndrome (G89.4) 11/12/19 Active confirmed Problem Solitary sacroiliitis (589851122) Sacroiliitis, not elsewhere classified (M46.1) 10/15/19 Active confirmed Problem Cervical spondylosis without myelopathy (346456902) Other spondylosis with radiculopathy, cervical region (M47.22) 10/15/19 Active confirmed Problem Lumbosacral spondylosis without myelopathy (52954845) Other spondylosis with radiculopathy, lumbosacral region (M47.27) 10/15/19 Active confirmed Problem Degeneration of cervical intervertebral disc (31332755) Other cervical disc degeneration, unspecified cervical region (M50.30) 10/15/19 Active confirmed Problem Degeneration of lumbar intervertebral disc (30815924) Other intervertebral disc degeneration, lumbar region (M51.36) 10/15/19 24 Active confirmed Problem Cervicalgia (00730881) Cervicalgia (M54.2) Active confirmed Problem Post-laminectomy syndrome (75403660) Postlaminectomy syndrome, not elsewhere classified (M96.1) 10/15/19 Active confirmed Problem Abnormal gait (70334076) Unspecified abnormalities of gait and mobility (R26.9) 10/15/19 24 Active confirmed Problem Cervical radiculopathy (34079273) Cervical radiculopathy (M54.12) Active confirmed Problem Cervical spondylosis (013619205) Cervical spondylosis (M47.812) Active confirmed Problem Cervical spinal stenosis (05334783) Cervical spinal stenosis (M48.02) Active confirmed Problem Degeneration of cervical intervertebral disc (30677116) Degeneration of cervical intervertebral disc (M50.30) Active confirmed Problem Bleeding disorder (00898998) Bleeding disorder (D69.9) Active confirmed Problem Degeneration of cervical intervertebral disc (53362278) Degeneration of C5-C6 intervertebral disc (M50.322) Active confirmed Problem Degeneration of cervical intervertebral disc (88222314) Degeneration of intervertebral disc at C6-C7 level (M50.323) Active confirmed Problem Degeneration of intervertebral disc of lumbar region with discogenic back pain (M51.360) Active confirmed Vital Signs Heart Rate 76 /min 02/15/2025 Temperature 97.2 degrees Fahrenheit 02/15/2025 Respiratory Rate 18 /min 02/15/2025 Oximetry 97 % 02/15/2025 Blood pressure diastolic 83 mm Hg 02/15/2025 Height-cm 177.8 cm 02/16/2025 Weight-kg 51.26 kg 02/16/2025 Height 70.00 in 02/16/2025 Blood pressure systolic 132 mm Hg 02/15/2025 Weight 113 lbs 02/16/2025 BMI 16.21 kg/m2 02/16/2025 Procedures Procedure Date Ordered Date Performed Result Body Sit e Epidural, Cervical/ Thoracic , w/ imaging guidance - 93027 09/23/2024 09/23/2024 N/A Encounters Encounter Location Date Provider Diagnosis [facility] [address] [address] 02/15/2025 Nicole Hollins Other spondylosis with radiculopathy, cervical region M47.22 [facility] [address] [address] 02/16/2025 Alvaro Hull Chronic pain syndrom e [...] abnormalities of gait and mobility R26.9 and long term care pharmacist (current) use of opiate analgesic Z79.891 [facility] [address] [address] 05/13/2024 Marvin Castañeda Chronic pain syndrom e G89.4 ; Other [...] abnormalities of gait and mobility R26.9 and long term care pharmacist (current) use of opiate analgesic Z79.891 [facility] [place] [address] [place] [phone] 07/21/2024 Alvrao Hull Chronic pain syndrom e G89.4 ; [...] abnormalities of gait and mobility R26.9 and [facility] (current) use of opiate analgesic Z79.891 [facility] [place] [address] [place] [address] 09/01/2024 Alvaro Hull Chronic pain syndrom e G89.4 [...] abnormalities of gait and mobility R26.9 and long term care pharmacist (current) use of opiate analgesic Z79.891 [facility] [address] [facility] [place] [address] 09/23/2024 Alvaro Hull Other spondylosis with radiculopathy, cervical region M47.22 [facility] [address] [facility] [place] [address] 10/15/2024 Miguelina Mandujano Chronic pain syndrom e G89.4 ; Other spondylosis with radiculopathy, cervical region M47.22 ; Other spondylosis with radiculopathy, lumbosacral region M47.27 ; Sacroiliitis, not elsewhere classified M46.1 ; Postlaminectomy syndrome, not elsewhere classified M96.1 ; Unspecified abnormalities of gait and mobility R26.9 and [facility] (current) use of opiate analgesic Z79.891 [facility] [address] [address] 12/15/2024 Alvaro Hull Chronic pain syndrom e G89.4 [...] abnormalities of gait and mobility R26.9 and [facility] (current) use of opiate analgesic Z79.891 [facility] [address] [address] 01/11/2025 Jack Spike Cervical spondylosis M47.812 ; Cervicalgia M54.2 ; Cervical radiculopathy M54.12 ; Neural foraminal stenosis of cervical spine M99.81 and Degeneration of cervical intervertebral disc M50.30 [facility]rated[facility]ility 0 0 03/06/2024 Provider Migration [facility] 0 0 03/07/2024 Provider Migration [facility] [address] [place] [address] 05/13/2024 Alvaro Hull [facility] [address] [address] 07/02/2024 Alvaro Hull [facility] [address] [address] 07/14/2024 Leia Berg e Other spondylosis with radiculopathy, cervical region M47.22 [facility] [place] [address] [place] [phone] 08/13/2024 Alvaro Hull Other spondylosis with radiculopathy, cervical region M47.22 [facility] [place] [address] [place] [address] 09/16/2024 Alvaro Hull [facility] [address] [facility] [place] [address] 10/15/2024 Alvaro Hull Other spondylosis with radiculopathy, cervical region M47.22 [facility] [address] [facility] [place] [address] 11/18/2024 Alvaro Hull [facility] [place] [address] [place] [place] [address] 01/12/2025 Jack Lala Cervical spondylosis M47.812 ; Cervicalgia M54.2 ; Cervical radiculopathy M54.12 ; Neural foraminal stenosis of cervical spine M99.81 ; Degeneration of cervical intervertebral disc M50.30 ; Bleeding disorder D69.9 and Encounter for other preprocedural examination Z01.818 [facility] [place] [address] [place] [phone] 02/17/2025 Alvaro Hull Chronic pain syndrom e G89.4 Assessments Encounter Date Diagnosis (ICD Code) Assessment Notes Treatment Notes Treatment Clinical Notes Section Notes 01/12/2025 Cervical spondylosis (ICD-10 - M47.812) 02/15/2025 Other spondylosis with radiculopathy, cervical region (ICD-10 - M47.22) 02/16/2025 Chronic pain syndrome (ICD-10 - G89.4) [...] a couple of months and proceed accordingly. 09/01/2024 Chronic pain syndrome (ICD-10 - G89.4) I had a nice visit with the patient today regarding her chronic pain issues. She says unfortunately her lumbar spine has flared up and she thinks it's because she slept in an uncomfortable bed over a week ago. Otherwise she has been doing about the same and the cervical pain persists. We did review her cervical MRI today which mainly shows foraminal stenosis at the C5-6 and C6-7 levels, especially at C6-7 on the left side which is quite severe. We discussed treatment options and it would seem reasonable to try another cervical epidural steroid injection and if this is not successful we will get her over to see a neurosurgeon and see what her options are. We will continue her medications unchanged and see her soon for that injection. Schedule JAMES 05/13/2024 Chronic pain syndrome (ICD-10 - G89.4) I had a nice discussion with the patient today regarding her chronic pain complaints. Unfortunately , she is continues to have pain that is worse in her neck. She is currently doing physical therapy for her neck pain. She states that so far, it has actually made some of her neck pain worse so she is not sure how much it will help but she still has 5 more weeks to go. She is hoping it will help more with time. If she does not get significant relief from the therapy, updated imaging can be considered at that time. For now, her medication will be continued and we will see her back in about 2 months to discuss her response to physical therapy and proceed accordingly. 05/13/2024 Other cervical disc degeneration, unspecified cervical region (ICD-10 - M50.30) I had a nice discussion with the patient today regarding her chronic pain complaints. Unfortunately , she is continues to have pain that is worse in her neck. She is currently doing physical therapy for her neck pain. She states that so far, it has actually made some of her neck pain worse so she is not sure how much it will help but she still has 5 more weeks to go. She is hoping it will help more with time. If she does not get significant relief from the therapy, updated imaging can be considered at that time. For now, her medication will be continued and we will see her back in about 2 months to discuss her response to physical therapy and proceed accordingly. 07/21/2024 Chronic pain syndrome (ICD-10 - G89.4) I had a nice visit with the patient today regarding her chronic pain issues. Unfortunately she got a bit worse with physical therapy, which was certainly not the goal. She said the only thing that helped was massage. She is wondering what to do, which is fair. At this point, it would seem reasonable to get her setup with updated imaging as it has been about 2 years. We will get this ordered and plan to see her back in about 6 weeks. We will continue her medications unchanged for now. Order cervical MRI 08/13/2024 Other spondylosis with radiculopathy, cervical region (ICD-10 - M47.22) 09/23/2024 Other spondylosis with radiculopathy, cervical region (ICD-10 - M47.22) 10/15/2024 Chronic pain syndrome (ICD-10 - G89.4) I had a nice discussion with the patient today regarding her chronic pain complaints. She continues with lower back pain but feels it is relatively stable right now. Her main complaint is her neck pain. She status post JAMES which she reports, unfortunately, did not help relieve her pain at all. I did again review her most recent MRI of the cervical spine with her from July. She does have severe stenosis. After discussion of treatment options, the patient would like to be referred for neurosurgical consultation. She is requesting referral to Dr. Hatch out of [place]. We will send this referral for her and she will keep us updated. She denies any other changes since we last seen her any untoward side effects of the medication. Bowel regimen was also discussed with the patient. Recommended lifestyle modifications. She will continue her medication at present level and return to clinic in 2 months to monitor for treatment effectiveness and compliance. The patient continues with chronic pain requiring treatment to help restore function and improve quality of life. Risks of opioid therapy as well as interaction of opioids with alcohol, illicit drugs, muscle relaxers, and other sedative medications are reviewed briefly with patient again today. The patient has trialed all other reasonable treatment options and uses the medication to alleviate pain in order to remain active and rest with less pain. No clinically relevant medication side effects are noted. Last UDS and [place] COMPRESSOR OPERATOR ADJUSTER reviewed today. Patient is advised that best long-term goals include increased activity, core strengthening, proper weight management, coping strategies, avoidance of painful triggers, and targeted interventional therapy. We will see the patient for routine follow up in accordance with all clinic policies. We did remind patient today of current guidelines to decrease opioid when possible. We will continue to stress nonopioid treatment. Referral for Neurosurgical Consult The patient is being referred for neurosurgical consult at this time to further evaluate options related to pain and overall functional ability. 10/15/2024 Other spondylosis with radiculopathy, cervical region (ICD-10 - M47.22) 10/15/2024 Other spondylosis with radiculopathy, cervical region (ICD-10 - M47.22) 12/15/2024 Chronic pain syndrome (ICD-10 - G89.4) I had a nice visit with the pt today regarding her chronic pain issues. Overall seems to be doing pretty well and shes regained some weight up to a much healthier level for her. She denies any new problems or issues. Unfortunately, she was upset that her insurance was not accepted by her neurosurgeon in [place]. She requested a referral to see someone different. We referred to see Dr. Lala and see if we can get her in. We plan to f/u with her in 2 months and proceed accordingly. 01/11/2025 Cervicalgia (ICD-10 - M54.2) 01/11/2025 Cervical spondylosis (ICD-10 - M47.812) Imaging, symptoms and clinical symptoms were reviewed. MRI Cervical spine reveals Reversal of cervical lordosis. Multi level disc degeneration . Spondylosis C5-C7. Modic change C6-7. Disc bulge C4-5, C5-6. Uncovertebral hypertrophy and facet generation C5-6, C6-7. Moderate right and severe left neural foraminal stenosis. I believe the bulk of her pain in C5-C7 secondary due to muscle spasm. She has tried physical therapy, and it made her symptoms worse. She has tried steroid injections and ablation in the past with no relief of symptoms. We discussed treatment options. She may leave things alone and continue symptomatic treatment, this is an option but not one I recommend. Conservative measures have been tried and failed in the past. I recommend spinal cord stimulator through the pain clinic, however the patient declines a stimulator at this time. I do feel surgery is warranted with her failure of conservative treatment and limited movement in her neck which makes it difficult for her to do daily activities. Surgery option would be C5-7 ACDF. The surgery was described to the patient along with risks of surgery and recovery expectation. Questions were asked and answered to the patient's satisfaction. She states understanding of the information provided and wishes to proceed with surgery. ROS reviewed I Nupur Ocampo RN am scribing for, and in the presence of Jack Lala MD. I, Jack Lala, personally performed the services described in this documentation, as scribed by Nupur Ocampo RN in my presence, and it is both accurate and complete. 01/12/2025 Cervicalgia (ICD-10 - M54.2) 01/11/2025 Cervical radiculopathy (ICD-10 - M54.12) 12/15/2024 Other cervical disc degeneration, unspecified cervical region (ICD-10 - M50.30) 10/15/2024 Other spondylosis with radiculopathy, lumbosacral region (ICD-10 - M47.27) 07/21/2024 Other cervical disc degeneration, unspecified cervical region (ICD-10 - M50.30) 07/14/2024 Other spondylosis with radiculopathy, cervical region (ICD-10 - M47.22) 05/13/2024 Other spondylosis with radiculopathy, cervical region (ICD-10 - M47.22) I had a nice discussion with the patient today regarding her chronic pain complaints. Unfortunately , she is continues to have pain that is worse in her neck. She is currently doing physical therapy for her neck pain. She states that so far, it has actually made some of her neck pain worse so she is not sure how much it will help but she still has 5 more weeks to go. She is hoping it will help more with time. If she does not get significant relief from the therapy, updated imaging can be considered at that time. For now, her medication will be continued and we will see her back in about 2 months to discuss her response to physical therapy and proceed accordingly. 09/01/2024 Other cervical disc degeneration, unspecified cervical region (ICD-10 - M50.30) 02/17/2025 Chronic pain syndrome (ICD-10 - G89.4) 02/16/2025 Other cervical disc degeneration, unspecified cervical region (ICD-10 - M50.30) 01/12/2025 Cervical radiculopathy (ICD-10 - M54.12) 01/12/2025 Neural foraminal stenosis of cervical spine (ICD-10 - M99.81) 02/16/2025 Other spondylosis with radiculopathy, cervical region (ICD-10 - M47.22) 09/01/2024 Other spondylosis with radiculopathy, cervical region (ICD-10 - M47.22) RECOMMEND THERAPEUTIC CERVICAL EPIDURAL STEROID INJECTION, levels C6-7 The patient reports overall 50% improvement in function and decrease in pain for greater than one month from previous diagnostic JOEL. The patient also reports improvement in tolerance to activities which generally cause pain. Based on the results of previous diagnostic JOEL, a therapeutic JOEL is recommended. Expectation from a successful therapeutic epidural steroid injection is at least 50-70% relief of pain from baseline and evidence of improved function for at least six to eight weeks after delivery. The goal of epidural steroid injections is to reduce pain and inflammation, restoring range of motion and, thereby, facilitating progress in more active treatment programs, and avoiding surgery. The procedure and risks were discussed with the patient including but not limited to infection, bleeding, neurological complications, side effects from medications, no change in pain, worsening of pain, or even . We also discussed conservative options, surgical options, and medical management with patient as well. The patient indicates understanding and wishes to proceed with the recommended treatment approach. The patient was given written information about the procedure and all questions were answered. 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 Unfortunately , she is continues to have pain that is worse in her neck. She is currently doing physical therapy for her neck pain. She states that so far, it has actually made some of her neck pain worse so she is not sure how much it will help but she still has 5 more weeks to go. She is hoping it will help more with time. If she does not get significant relief from the therapy, updated imaging can be considered at that time. For now, her medication will be continued and we will see her back in about 2 months to discuss her response to physical therapy and proceed accordingly. 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 Unfortunately , she is continues to have pain that is worse in her neck. She is currently doing physical therapy for her neck pain. She states that so far, it has actually made some of her neck pain worse so she is not sure how much it will help but she still has 5 more weeks to go. She is hoping it will help more with time. If she does not get significant relief from the therapy, updated imaging can be considered at that time. For now, her medication will be continued and we will see her back in about 2 months to discuss her response to physical therapy and proceed accordingly. 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 Unfortunately , she is continues to have pain that is worse in her neck. She is currently doing physical therapy for her neck pain. She states that so far, it has actually made some of her neck pain worse so she is not sure how much it will help but she still has 5 more weeks to go. She is hoping it will help more with time. If she does not get significant relief from the therapy, updated imaging can be considered at that time. For now, her medication will be continued and we will see her back in about 2 months to discuss her response to physical therapy and proceed accordingly. 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 Unfortunately , she is continues to have pain that is worse in her neck. She is currently doing physical therapy for her neck pain. She states that so far, it has actually made some of her neck pain worse so she is not sure how much it will help but she still has 5 more weeks to go. She is hoping it will help more with time. If she does not get significant relief from the therapy, updated imaging can be considered at that time. For now, her medication will be continued and we will see her back in about 2 months to discuss her response to physical therapy and proceed accordingly. 09/01/2024 Sacroiliitis, not elsewhere classified (ICD-10 - M46.1) 02/16/2025 Sacroiliitis, not elsewhere classified (ICD-10 - M46.1) 02/16/2025 Postlaminectomy syndrome, not elsewhere classified (ICD-10 - M96.1) 09/01/2024 Postlaminectomy syndrome, not elsewhere classified (ICD-10 - M96.1) 05/13/2024 Unspecified abnormalities of gait and mobility (ICD-10 - R26.9) I had a nice discussion with the patient today regarding her chronic pain complaints. Unfortunately , she is continues to have pain that is worse in her neck. She is currently doing physical therapy for her neck pain. She states that so far, it has actually made some of her neck pain worse so she is not sure how much it will help but she still has 5 more weeks to go. She is hoping it will help more with time. If she does not get significant relief from the therapy, updated imaging can be considered at that time. For now, her medication will be continued and we will see her back in about 2 months to discuss her response to physical therapy and proceed accordingly. 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 Unfortunately , she is continues to have pain that is worse in her neck. She is currently doing physical therapy for her neck pain. She states that so far, it has actually made some of her neck pain worse so she is not sure how much it will help but she still has 5 more weeks to go. She is hoping it will help more with time. If she does not get significant relief from the therapy, updated imaging can be considered at that time. For now, her medication will be continued and we will see her back in about 2 months to discuss her response to physical therapy and proceed accordingly. 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 We will monitor with in-office testing (rapid testing) today and review the results prior to dispensing prescription. All positive results will be sent for quantitative analysis to ensure accuracy and quantify amounts. Any expected positive results that return negative will also be sent for quantitative analysis. Any questionable read or any medication we cannot test for in the office confidently will be sent for quantitative analysis, as well. Patient has been made aware of this policy and agrees to abide by our urine testing policy. 12/15/2024 [facility] (current) use of opiate analgesic (ICD-10 - Z79.891) 02/16/2025 Other Moraih Diallo, bernabe scribing for Dr. Alvaro Hull. I, Dr. Alvaro Hull, personally performed the services described in this documentation, as scribed by Moriah Rodriguez, and it is both accurate and complete. 07/21/2024 Other Xavier Diallo am scribing for Dr. Alvaro Hull. I, Dr. Alvaro Hull, personally performed the services described in this documentation, as scribed by Xavier Tee, and it is both accurate and complete. 09/01/2024 Other I, Xavier Tee, am scribing for Dr. Alvaro Hull. I, Dr. Alvaro Hull, personally performed the services described in this documentation, as scribed by Xavier Tee, and it is both accurate and complete. 12/15/2024 Other I, Moriah Rodriguez, am scribing for Dr. Alvaro Hull. I, Dr. Alvaro Hull, personally performed the services described in this documentation, as scribed by Moriah Rodriguez, and it is both accurate and complete. Plan Of Treatment Pending Test Test Name Order Date Prothrombin Time 96829 01/12/2025 Prothrombin Time 97026 01/26/2025 ABORh 40446, 29916 01/26/2025 ABORh 69184, 20172 01/12/2025 Antibody Screen 31828 01/12/2025 Antibody Screen 00392 01/26/2025 Basic Metabolic Panel (BMP) 16681 2024 Basic Metabolic Panel (BMP) 59941 2024 CBC w\ Auto Diff 21005 01/12/2025 CBC w\ Auto Diff 58438 01/26/2025 Partial Thromboplastin Time 20214 2024 Partial Thromboplastin Time 43918 2024 Cervical Spine AP/Lat 2-3 Views-02263 Cervical Spine AP/Lat 2-3 Views-58917 Cervical Spine AP/Lat 2-3 Views-55643 Chest PA/Lat-39717 01/26/2025 Chest PA/Lat-08591 01/12/2025 Electrocardiogram 12 Lead Tracing-23004 01/12/2025 BB ABORH-80661,98497 01/26/2025 zzzFluoro >1h4 02/03/2025 zzzMRI Outside CD 08/04/2024 Next Appt Details Provider Name:Nicole Hollis son, 03/15/2025 10:00:00 AM, [address] [place], [address], Provider Name:Alvaro Hull, 04/13/2025 10:40:00 AM, [address] [place], [address], Insurance Providers Payer Name Payer Address Payer Phone Subscriber Number Group Number Insured Name Patient Relationship to Insured Coverage Start Date Coverage End Date [facility] [employer] Medicare Replacement [address] [place] [address] [id number] Shira Wellington Self - patient is the insured [place] Medicaid [address] [place] [address] [id number] Shira Wellington Self - patient is the insured Medical (General) History Medical History History ICD Code High Blood Pressure bronchitis Arthritis Surgical History Surgery Date(Month/Year) Spinal Fusion Tonsillectomy
--- OUTSIDE RECORDS SUMMARY | 2025-02-25 11:04 | XMS_ITS | Clinical Summary ---
Author Organization [facility] Address [address] Ly: Epic Prelude ADT [place]ATIE OLIVO [address] Care Team Providers Care Presser Cotton Ginning Name Role Phone Unavailable Primary Care Provider Unavailabl e Encounters Date Type Department Care Team Description 12/14/2024 External Device Data [facility] ABSTRACTION Provider, Abstract from Last 3 Months Social History Tobacco Use Types Packs/Day Years Used Date Smoking Tobacco: Never Assessed Comments Unknown Sex and Gender Information Value Date Recorded Sex Assigned at Not on file Legal Sex Female 2:41 PM CDT Gender Identity Not on file Sexual Orientation Not on file Plan of Treatment Health Maintenance Due Date Last Done Comments DTAP/TDAP/TD VACCINES (1 - Tdap) 1988 HEPATITIS B VACCINES (1 of 3 - 19+ 3-dose series) 10/11 HPV/Cotest (21-29) 1990 CERVICAL CANCER SCREENING 11/01/1999 HPV/Cotest (30-65) 11/01/1999 PAP SMEAR 11/01/1999 BREAST CANCER SCREENING 2009 COLORECTAL SCREENING 2014 Colorectal Cancer Screening 2014 FIT-DNA Q 3 years 2014 FIT/FOBT Q 1 year 2014 Flex Sig/CT Colonography Q 5 years 2014 ZOSTER VACCINE (1 of 2) 11/01/2019 INFLUENZA VACCINE (#1) 2024
[2025-02-25 11:57] LABS: Hematocrit 40.5 % (36-47); Hemoglobin 13.20 g/dL (11.27-16.99); Mean Corpuscular HGB Conc 32.6 g/dL (30-55); Mean Corpuscular Hemoglobin 29.8 pg (27-33); Mean Corpuscular Volume 91.4 fl (85-98); Nucleated Red Blood Cells % 0 %; Platelet Count 346 10^3/cmm (157-399); Red Blood Count 4.43 10^6/uL (3.85-5.65); White Blood Count 5.48 10^3/uL (3.29-11.43)
[2025-02-25 12:09] LABS: Troponin(5th) Baseline 7 ng/L (0-10)
--- NOTE | 2025-02-25 12:20 | ED_ITS ---
HPI - Chest Pain 2 General: Chief Complaint: Chest Pain Stated Complaint: CP Time Seen by Provider: 02/25/25 12:05 Source: patient Mode of arrival: ambulatory Limitations: physical limitation (Currently in a Cervical collar post surgery ) History of Present Illness: 54-year-old female patient [facility] today for complaint of chest pain. Patient reported that she had noticed last night that she felt some indigestion and pressure in her epigastric area. She reported that the pain has traveled to the left side of her chest. Patient complains of increased pain with inspiration. She reported that nothing she has tried at home has relieved it. Patient also reports she recently discontinued taking medication that was causing her to have GI upset 3 days prior to arrival. MD complaint: chest pain and other (Epigastric pain) Onset (ago): hour(s) (12) Timing of current episode: constant and still present Prior episodes: No Onset: during rest and after eating Pain location: substernal, left chest and epigastric Pain radiation: left shoulder Severity: moderate Pain scale (0-10): 7 Quality: aching Relieving factors: nothing Exacerbating factors: inspiration and eating Context: recent surgery (Cervical fusion 3 weeks prior to arrival) Associated symptoms: Reports nausea Treatment prior to arrival: none Risk Factors: Coronary artery disease risk factors: smoking history (45 years) Related Data Home Medications ?Medication ?Instructions ?Recorded ?Confirmed albuterol sulfate 90 mcg/actuation 2 puff inhalation Q ID 06/25/21 06/25/21 aerosol inhaler hydrocodone 10 mg-ibuprofen 200 mg 1 tab PO QID PRN 06/25/21 tablet Previous Rx's ?Medication ?Instructions ?Recorded benzonatate 100 mg capsule 100 mg PO TID PRN cough 10 days 06/25/21 (Manuel Fernández) #20 caps doxycycline hyclate 100 mg capsule 100 mg PO BID 10 da ys #20 caps 06/25/21 prednisone 20 mg tablet 40 mg (2 x 20 mg) PO DAILY 5 days 06/25/21 #10 tabs famotidine 20 mg tablet (Pepcid AC) 20 mg PO DAILY Ind igestion #30 tabs 02/25/25 Allergies Allergy/AdvReac Type Severity Reaction Status Date / Time No Known Allergies Allergy Unverified 06/25/21 13:52 Review of Systems 2 General: Reports: 10 or more systems reviewed and unremarkable except in HPI and below Card: Reports: chest pain and other (Left-sided chest pain with inspiration) GI: Reports: nausea, heartburn and belching PFSH ED 2 PFSH: Social History Smoking and tobacco/nicotine status: current every day tobacco/nicotine user Physical Exam 2 Narrative: EXAM NARRATIVE: 54-year-old female patient presents [facility] department today for complaint of chest pain. Patient reported that she had noticed last night that she felt some indigestion and pressure in her epigastric area. She reported that the pain has traveled to the left side of her chest. Patient complains of increased pain with inspiration. She reported that nothing she has tried at home has relieved it. Patient reported she was taking simvastatin for hyperlipidemia and was having GI issues after taking it for about 3 weeks she quit taking this medication 3 to 4 days ago. Patient reports she is currently still having nausea. Const: COMMON NORMALS: patient oriented x3 and alert GENERAL APPEARANCE: c ooperative and well kempt NUTRITIONAL APPEARANCE: thin O RIENTATION/CONSCIOUSNESS: Yes awake, Yes oriented to place and Yes oriented to time HENMT: COMMON NORMALS: normocephalic, atraumatic, Normal external nose present and moist oral mucous membranes HEAD & SCALP: normocephalic and atraumatic NOSE: Normal external nose present Neck/C-Spine: COMMON NORMALS: no JVD Cardio: COMMON NORMALS: no JVD, regular rhythm and Peripheral pulses 2+ throughout JUGULAR VENOUS DISTENTION: no JVD PALPATION: normal PMI R ATE: bradycardic RHYTHM: regular rhythm and abnormal rhythm PERIPHERAL PULSES: Peripheral pulses 2+ throughout GI: COMMON NORMALS: Normal to inspection, nondistended, normoactive bowel sounds present, Soft to palpation and No hepatosplenomegaly present I NSPECTION: Yes normal to inspection AUSCULTATION: Yes normoactive bowel sounds PALPATION: Yes Soft to palpation and Yes No hepatosplenomegaly present Neuro: COMMON NORMALS: patient oriented x3 SENSORIUM/ORIENTATION: Yes alert, Yes oriented to place and Yes oriented to time Psych: APPEARANCE: Yes well kempt Course 2 Vital Signs: Vital signs: Vital Signs Temperature 97.8 F 02/25/25 10:50 Pulse Rate 71 02/25/25 14:56 Respiratory Rate 16 02/25/25 14:56 Blood Pressure 122/78 02/25/25 14:56 Pulse Oximetry 95 02/25/25 14:56 Oxygen Delivery Me thod Room Air 02/25/25 13:14 MDM - Chest Pain Medical Decision Making 54-year-old female patient presents to the emergency department today with complaint of epigastric pain with possible radiation to the left side. Patient reported that her pain increased with inspiration and had been continuous since yesterday 02/24 patient reported that she had not tried anything [id number] at home. Patient with that she recently was started on simvastatin and took this medication for around 3 weeks she reported that she discontinued this medication 3 days ago related to GI symptoms. We discussed that she need to follow-up with her primary care regarding her discontinuation and she stated understanding. 324 aspirin administered here in the emergency department EKG was provided to the ER physician and charted as sinus bradycardia with occasional supraventricular premature complexes. Patient reported that she previously saw cardiology years ago however she has not seen them in years. CBC and CMP are reassuring. Heart score is 3, troponin is negative. Patient was administered a GI cocktail and reported that she is having significant relief after this medication at this time I do not feel that the patient should be admitted to the hospital at this time we did discuss when to return to the emergency department such as increased chest pain, shortness of breath, change in symptoms, or any other concerns patient stated understanding. Patient given a prescription for Pepcid to discuss how to take this medication and she stated understanding. Patient is hemodynamically stable and appropriate to be discharged home. Lab Data 02/25/25 11:45 02/25/25 11:45 Radiology Impressions Chest X-Ray 02/25/25 10:48 IMPRESSION: No acute chest abnormality. Laboratory Results WBC 5.48 10^3/uL (3.29-11.43) 02/25/25 11:45 RBC 4.43 10^6/uL (3.85-5.65) 02/25/25 11:45 Hgb 13.20 g/dL (11.27-16.99) 02/25/25 11:45 Hct 40.5 % (36-47) 02/25/25 11:45 MCV 91.4 fl (85-98) 02/25/25 11:45 MCH 29.8 pg (27-33) 02/25/25 11:45 MCHC 32.6 g/dL (30-55) 02/25/25 11:45 RDW 12.3 % (12.1-15.1) 02/25/25 11:45 Plt Count 346 10^3/cmm (157-399) 02/25/25 11:45 MPV 10.2 fL (7.4-10.4) 02/25/25 11:45 Neut % (Auto) 62.6 % 02/25/25 11:45 Lymph % (Auto) 27.0 % 02/25/25 11:45 Johnston % (Auto) 8.0 % 02/25/25 11:45 Eos % (Auto) 1.1 % 02/25/25 11:45 Baso % (Auto) 0.9 % 02/25/25 11:45 Neut # (Auto) 3.43 10^3/uL (1.8-7.7) 02/25/25 11:45 Lymph # (Auto) 1.5 10^3/uL (0.8-4.8) 02/25/25 11:45 Johnston # (Auto) 0.4 10^3/uL (0.2-0.9) 02/25/25 11:45 Eos # (Auto) 0.1 10^3/uL (0.0-0.8) 02/25/25 11:45 Baso # (Auto) 0.1 10^3/uL (0.0-0.1) 02/25/25 11:45 Nucleated RBC % (auto) 0 % 02/25/25 11:45 Nucleated RBCs # 0.0 /100WBC 02/25/25 11:45 Sodium 141 mmol/L (136-145) 02/25/25 11:45 Potassium 4.3 mmol/L (3.5-5.1) 02/25/25 11:45 Chloride 103 mmol/L (98-107) 02/25/25 11:45 Carbon Dioxide 26 mmol/L (22-29) 02/25/25 11:45 Anion Gap 16.3 (5-19) 02/25/25 11:45 BUN 13 mg/dL (6-20) 02/25/25 11:45 Creatinine 0.5 mg/dL (0.5-0.9) 02/25/25 11:45 GFR Calculation 128.1 mL/min (90-130) 02/25/25 11:45 Glucose 75 mg/dL (65-115) 02/25/25 11:45 Calculated Osmolality 291 mOsm/kg (285-295) 02/25/25 11:45 Calcium 9.8 mg/dL (8.5-10.5) 02/25/25 11:45 Total Bilirubin 0.4 mg/dL (0.15-1.2) 02/25/25 11:45 AST 17 U/L (0-32) 02/25/25 11:45 ALT 11 U/L (0-33) 02/25/25 11:45 Alkaline Phosphatase 88 U/L (35-105) 02/25/25 11:45 Troponin T Baseline 7 ng/L (0-10) 02/25/25 11:45 Troponin T 120 Minute 6.86 ng/L (0-10) 02/25/25 13:27 Delta Troponin T -0.14 ABS# (0-10) L 02/25/25 13:27 NT-Pro-B Natriuret Pep 216 pg/mL (0-125) H 02/25/25 11:45 Total Protein 6.9 g/dL (6.6-8.7) 02/25/25 11:45 Albumin 4.5 g/dL (3.5-5.2) 02/25/25 11:45 Globulin 2.4 g/dL (1.3-4.6) 02/25/25 11:45 Lipase 52 U/L (13-60) 02/25/25 11:45 All radiology interpretation(s) finalized by discharge Discharge Plan Discharge Patient Disposition: Home Clinical Impression: Acute epigastric pain, Indigestion Chest pain Qualifiers: Chest pain type: chest pain on breathing Qualified Code(s): R07.1 - Chest pain on breathing Condition: Stable Prescriptions: New famotidine [Pepcid AC] 20 mg tablet 20 mg PO DAILY Qty: 30 0RF No Action hydrocodone-ibuprofen 10-200 mg tablet 1 tab PO QID PRN albuterol sulfate 90 mcg/actuation HFA aerosol inhaler 2 puff inhalation QID doxycycline hyclate 100 mg capsule 100 mg PO BID 10 Days Qty: 20 0RF prednisone 20 mg tablet 40 mg PO DAILY 5 Days Qty: 10 0RF benzonatate [Tessalon Perles] 100 mg capsule 100 mg PO TID PRN (Reason: cough) 10 Days Qty: 20 0RF Discharge Orders: Discharge ED (Routine); Ordered 02/25/25 Ordered By: Emilia Hernandez Discharge Activity: Resume usual activity Patient Instructions: Chest Pain (ED), Indigestion (ED), Abdominal Pain (ED), Opioid Safety, Pain Management, Patient Portal & Keshav Instructions Print Language: Frisian Coding Level of Care Code ED Garment Finisher for Chg Fwd Heart Score HEART Score Components History: Moderately Suspicious EKG: Normal Age: 45-64 yrs Risk Factors: 1 or 2 Risk Factors Troponin: Baseline Trop <16 ng/L HEART Score RESULT HEART Score: 3
[2025-02-25 12:25] LABS: Alanine Aminotransferase 11 U/L (0-33); Albumin Level 4.5 g/dL (3.5-5.2); Alkaline Phosphatase 88 U/L (35-105); Anion Gap 16.3 (5-19); Aspartate Amino Transferase 17 U/L (0-32); Blood Urea Nitrogen 13 mg/dL (6-20); Calcium 9.8 mg/dL (8.5-10.5); Carbon Dioxide 26 mmol/L (22-29); Chloride 103 mmol/L (98-107); Creatinine Clr Calc Pharmacy 100.1365; Globulin 2.4 g/dL (1.3-4.6); Glucose 75 mg/dL (65-115); NT Pro B Type Natriuretic Pept 216 pg/mL (0-125); Osmolality Calculated 291 mOsm/kg (285-295); Potassium 4.3 mmol/L (3.5-5.1); Sodium 141 mmol/L (136-145); Total Protein 6.9 g/dL (6.6-8.7)
[2025-02-25 12:40] LABS: Lipase 52 U/L (13-60)
--- NOTE | 2025-02-25 12:48 | ECG_ITS ---
[facility] Test Date: 2025-02-25 Pat Name: Shira Wellington Department: Room: Gender: Female Product Support Consultant: : 1970 Requested By: Malathi Villatoro Order Number: [id number] Matthews MD: Rich Murcia M.D. Measurements Intervals [place] Rate: 56 P: 73 OK: 152 QRS: 91 QRSD: 77 T: 82 QT: 432 QTc: 420 Interpretive Statements SINUS BRADYCARDIA WITH OCCASIONAL SUPRAVENTRICULAR PREMATURE COMPLEXES BORDERLINE RIGHT AXIS DEVIATION [QRS AXIS > 90] Compared to ECG 02/25/2025 10:54:04 Sinus rhythm no longer present Sinus arrhythmia no longer present ST (T wave) deviation no longer present Electronically Signed On 02-26-2025 12:07:49 CDT by Rich Murcia M.D. [email or web address]
[2025-02-25 13:14] VITALS: BP 117/83; PULSE 58; RESP 18; O2SAT 96
[2025-02-25] MEDS: lidocaine 2% viscous 15 ML, aluminum-mag hydrox-simethicon 30 ML, sucralfate oral liq 1 GM PO (13:22)
[2025-02-25 14:02] LABS: Troponin 5 2HR 6.86 ng/L (0-10)
[2025-02-25 14:03] LABS: Troponin 5 2HR Delta -0.14 ABS# (0-10)
[2025-02-25 14:56] VITALS: BP 122/78; PULSE 71; RESP 16; O2SAT 95
== END 2025-02-25 15:03 | disposition home or self-care (01) ==
PROVIDERS: Emergency Medicine; Emergency Provider Nurse Practitioner
DX: K30 Functional dyspepsia (principal); R07.1 Chest pain on breathing; Z72.0 Tobacco use
CPT/HCPCS: 36415; 71045; 80053; 83690; 83880; 84484; 85025; 93005; 99285; J9999

== ENCOUNTER 2025-03-15 08:45 | Outpatient (CLI) | payer MEDICARE, MEDICAID, SELFPAY ==
--- NOTE | 2025-03-15 08:56 | XR_ITS ---
WS: [id number] Cervical spine, 3 views, 03/15/2025 Clinical Data: OTHHER SPONDYLOSIS WITH RADICULOPATHY, CERVICAL REGION Comparison: Cervical spine, 03/31/2019 Findings: There is an anterior cervical disc fusion C5-C7 with corresponding disc spacers. No prevertebral soft tissue swelling is seen. There are no compression fractures. The odontoid is normal. XR/XR cervical spine 3V* [id number] Impression: Anterior cervical disc fusion C5-C7.
== END 2025-03-15 08:46 | disposition home or self-care (01) ==
LOC: RAD 08:54
PROVIDERS: Visit Provider Nurse Practitioner Family
DX: M47.22 Other spondylosis with radiculopathy, cervical region (principal); M43.22 Fusion of spine, cervical region
CPT/HCPCS: 72040